=== PATIENT | female | born 2005 | race African-American/Black ===

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

== ENCOUNTER 2024-01-06 16:52 | Emergency (ER) | payer SELFPAY ==
[~2024-01-06] VITALS: Ht 160 cm; Wt 63.5 kg
[2024-01-06] VITALS (16 sets, daily range): BP systolic 62–116; BP diastolic 36–75
[2024-01-06] MEDS ORDERED: SODIUM CHLORIDE 0.9% 1,000 ML IV ONE ×2 (17:05→18:20)
[2024-01-06] MEDS ORDERED: MORPHINE SULFATE 4 MG/ML VIAL IV ONE ×2 (17:20→19:50)
[2024-01-06] MEDS ORDERED: ONDANSETRON HCl 4 MG/2 ML SDV IV ONE (17:20)
[2024-01-06] MEDS ORDERED: KETOROLAC TROMETHAMINE 30 MG/ML SDV IV ONE (17:20)
[2024-01-06 17:41] LABS: EOS% 7.2 % (0-8); HEMATOCRIT 24.8 % (37.0-47.0); HEMOGLOBIN 7.9 g/dl (12.0-16.0); IMMATURE GRANULOCYTES 0.6 % (0.0-5.0); LYMPH% 32.1 % (15-41); MEAN CELL VOLUME 94.3 fL CALC (80.0-100.0); MEAN CORPUSCULAR HGB CONC 31.9 g/dL CAL (32.0-36.0); MONO% 6.7 % (2-13); NEUT# 9.66 thou/uL (2.00-7.15); NEUT% 52.4 % (42-76); RED BLOOD COUNT 2.63 mill/uL (4.20-5.60); RED CELL DISTRI WIDTH 24.8 % (11.5-15.5)
[2024-01-06 17:54] LABS: BILIRUBIN, TOTAL 3.6 mg/dL (0.02-1.3); CREATININE 0.5 mg/dL (0.5-1.0); POTASSIUM 3.7 mmol/l (3.5-5.1); TOTAL PROTEIN 7.3 g/dL (6.3-8.2)
[2024-01-06 18:19] LABS: URINE BLOOD DIPSTICK Large (NEGATIVE); URINE GLUCOSE - DIPSTICK Negative (NEGATIVE); URINE KETONE Negative (NEGATIVE); URINE LEUK ESTERASE Trace (NEGATIVE); URINE NITRITE - DIPSTICK Negative (Negative); URINE PROTEIN - DIPSTICK >=300 mg/dL (NEG-TRACE); URINE SPECIFIC GRAVITY >=1.030
[2024-01-06 18:20] LABS: URINE COLOR Yellow
[2024-01-06 18:28] LABS: URINE SQUAMOUS EPITHELIAL CELL FEW EPI/hpf (0-FEW)
[2024-01-06] MEDS ORDERED: HYDROmorphone HCL 2 MG/AMP IV ONE (18:35)
[2024-01-06] MEDS ORDERED: cefTRIAXone SODIUM 2 GM in SODIUM CHLORIDE 0.9% 100 ML IV ONE (18:40)
[2024-01-06] MEDS ORDERED: IPRATROPIUM-Albuterol 0.5MG-2.5MG/3 ML NEB ONE (19:15)
[2024-01-06] MEDS ORDERED: DiphenhydrAMINE HCL 50 MG/ML SDV IV ONE (19:15)
[2024-01-06] MEDS ORDERED: methylPREDNISolone SODIUM SUCC 125 MG/2 ML SDV IV ONE (19:15)
[2024-01-06] MEDS ORDERED: EPINEPHrine HCL 1 MG/ML AMP IM ONE (19:15)
[2024-01-06] MEDS ORDERED: PROCHLORPERAZINE EDISYLATE 10 MG/2 ML SDV IV ONE (19:50)
[2024-01-06] MEDS ORDERED: HEPARIN SODIUM FLUSH (PORCINE) 100 UNIT/ML 5 ML SYR IV ONE (21:10)
[2024-01-06] MEDS ORDERED: SULFAMETHOXAZOLE W/TRIMETHOPRI 1 COMBO TAB PO ONE (21:10)
[2024-01-06] MEDS ORDERED: BACTRIM DS1 TAB PO (21:13)
== END 2024-01-06 21:36 | disposition home or self-care (01) | DRG 812 ==
LOC: ED 16:52
PROVIDERS: Family Medicine
DX: D57.00 Hb-SS disease with crisis, unspecified (principal); N39.0 Urinary tract infection, site not specified; J45.909 Unspecified asthma, uncomplicated; R06.02 Shortness of breath; L29.9 Pruritus, unspecified; T36.1X5A Adverse effect of cephalosporins and other beta-lactam antibiotics, initial encounter
CPT/HCPCS: Q9967

== ENCOUNTER 2024-01-12 15:51 | Emergency (ER) | payer SELFPAY ==
[~2024-01-12] VITALS: Ht 160 cm; Wt 58.9 kg
[2024-01-12] VITALS (21 sets, daily range): BP systolic 90–117; BP diastolic 46–90
[2024-01-12] MEDS ORDERED: SODIUM CHLORIDE 0.9% 1,000 ML IV ONE ×2 (15:55→17:45)
[2024-01-12] MEDS ORDERED: KETOROLAC TROMETHAMINE 30 MG/ML SDV IV ONE (15:55)
[2024-01-12] MEDS ORDERED: MORPHINE SULFATE 4 MG/ML VIAL IV ONE ×3 (17:15→20:55)
[2024-01-12 17:16] LABS: BASO% 0.8 % (0-3); HEMATOCRIT 24.9 % (37.0-47.0); HEMOGLOBIN 8.3 g/dl (12.0-16.0); IMMATURE GRANULOCYTES 1.8 % (0.0-5.0); LYMPH% 7.8 % (15-41); MEAN CORPUSCULAR HGB 29.5 pG CALC (26.0-32.0); MEAN CORPUSCULAR HGB CONC 33.3 g/dL CAL (32.0-36.0); MONO% 9.6 % (2-13); NEUT# 14.05 thou/uL (2.00-7.15); RED BLOOD COUNT 2.81 mill/uL (4.20-5.60); RED CELL DISTRI WIDTH 20.9 % (11.5-15.5)
[2024-01-12 17:32] LABS: MEAN CELL VOLUME 88.6 fL CALC (80.0-100.0)
[2024-01-12 17:33] LABS: ALBUMIN 4.3 g/dL (3.2-5.0); BILIRUBIN, TOTAL 4.4 mg/dL (0.02-1.3); CREATININE 0.6 mg/dL (0.5-1.0); TOTAL PROTEIN 7.7 g/dL (6.3-8.2)
[2024-01-12 17:34] LABS: POTASSIUM 4.6 mmol/l (3.5-5.1)
[2024-01-12] MEDS ORDERED: Levofloxacin 750 mg Premix 150 ML IV ONE (17:45)
[2024-01-12 18:27] LABS: URINE BLOOD DIPSTICK Negative (NEGATIVE); URINE COLOR Amber; URINE GLUCOSE - DIPSTICK 100 mg/dL (NEGATIVE); URINE KETONE Negative (NEGATIVE); URINE LEUK ESTERASE Negative (NEGATIVE); URINE NITRITE - DIPSTICK Negative (Negative); URINE PH 5.5 (4.5-8.0); URINE PROTEIN - DIPSTICK Negative (NEG-TRACE); URINE SPECIFIC GRAVITY 1.015; URINE UROBILINOGEN - DIPSTICK >=8.0 E.U./dL (0.2)
[2024-01-12] MEDS ORDERED: PAXLOVID 10 X 11 TAB PO (21:14)
== END 2024-01-12 21:55 | disposition home or self-care (01) | DRG 811 ==
LOC: ED 15:51
PROVIDERS: Family Medicine
DX: D57.01 Hb-SS disease with acute chest syndrome (principal); U07.1 COVID-19; J45.909 Unspecified asthma, uncomplicated
CPT/HCPCS: Q9967

== ENCOUNTER 2024-02-03 16:06 | Emergency (ER) | payer SELFPAY ==
[~2024-02-03] VITALS: Ht 160 cm; Wt 65.0 kg
[~2024-02-03 16:06] MED LIST changes: +PAXLOVID 10 X 11 TAB PO
[2024-02-03 16:14] VITALS: BP 111/71
[2024-02-03] MEDS ORDERED: KETOROLAC TROMETHAMINE 30 MG/ML SDV IV ONE ×2 (16:20→19:20)
[2024-02-03] MEDS ORDERED: SODIUM CHLORIDE 0.9% 1,000 ML IV ONE ×2 (16:20→19:20)
[2024-02-03] MEDS ORDERED: HYDROmorphone HCL 2 MG/AMP IV ONE ×3 (16:20→19:20)
[2024-02-03 17:09] LABS: BASO% 0.8 % (0-3); HEMOGLOBIN 9.6 g/dl (12.0-16.0); IMMATURE GRANULOCYTES 0.6 % (0.0-5.0); LYMPH% 15.9 % (15-41); MEAN CELL VOLUME 84.6 fL CALC (80.0-100.0); MEAN CORPUSCULAR HGB CONC 34.3 g/dL CAL (32.0-36.0); MONO% 5.1 % (2-13); NEUT# 11.6 thou/uL (2.00-7.15); NEUT% 74.6 % (42-76); RED BLOOD COUNT 3.31 mill/uL (4.20-5.60); RED CELL DISTRI WIDTH 20.9 % (11.5-15.5)
[2024-02-03 17:17] LABS: CREATININE 0.5 mg/dL (0.5-1.0); POTASSIUM 3.9 mmol/l (3.5-5.1)
[2024-02-03 17:21] LABS: HCG SERUM/URINE (NEG/POS) NEGATIVE (NEGATIVE)
[2024-02-03 17:50] LABS: URINE BLOOD DIPSTICK Negative (NEGATIVE); URINE GLUCOSE - DIPSTICK Negative (NEGATIVE); URINE KETONE Negative (NEGATIVE); URINE LEUK ESTERASE Negative (NEGATIVE); URINE NITRITE - DIPSTICK Negative (Negative); URINE PROTEIN - DIPSTICK Negative (NEG-TRACE)
[2024-02-03 17:53] LABS: URINE COLOR Dark yellow
[2024-02-03 18:00] VITALS: BP 111/64
[2024-02-03 18:30] VITALS: BP 113/52
[2024-02-03 20:09] VITALS: BP 109/70
[2024-02-03] MEDS ORDERED: DiphenhydrAMINE HCL 50 MG/ML SDV IV ONE (20:15)
[2024-02-03 20:30] VITALS: BP 110/78
[2024-02-03 21:44] VITALS: BP 110/78
== END 2024-02-03 21:48 | DRG 812 ==
LOC: ED 16:06
PROVIDERS: Family Medicine
DX: D57.01 Hb-SS disease with acute chest syndrome (principal); J45.909 Unspecified asthma, uncomplicated; Z79.891 Long term (current) use of opiate analgesic

== ENCOUNTER 2024-02-20 01:02 | Emergency (ER) | payer SELFPAY ==
[~2024-02-20] VITALS: Ht 160 cm; Wt 61.0 kg
[2024-02-20] VITALS (9 sets, daily range): BP systolic 104–138; BP diastolic 63–84
[2024-02-20] MEDS ORDERED: ACETAMINOPHEN 500 MG TAB PO ONE (01:30)
[2024-02-20] MEDS ORDERED: PROMETHAZINE HCL 25 MG/ML AMP IV ONE (01:30)
[2024-02-20] MEDS ORDERED: HYDROmorphone HCL 2 MG/AMP IV ONE (01:30)
[2024-02-20] MEDS ORDERED: SODIUM CHLORIDE 0.9% 1,000 ML IV ONE ×2 (01:30)
[2024-02-20] MEDS ORDERED: ASPIRIN 81 MG/TAB PO ONE (01:30)
[2024-02-20] MEDS ORDERED: KETOROLAC TROMETHAMINE 30 MG/ML SDV IV ONE (01:30)
[2024-02-20] MEDS ORDERED: DiphenhydrAMINE HCL 50 MG/ML SDV IV ONE (01:30)
[2024-02-20 02:12] LABS: BASO% 0.9 % (0-3); HEMATOCRIT 33.7 % (37.0-47.0); HEMOGLOBIN 10.9 g/dl (12.0-16.0); IMMATURE GRANULOCYTES 0.3 % (0.0-5.0); MEAN CELL VOLUME 86.9 fL CALC (80.0-100.0); MEAN CORPUSCULAR HGB 28.1 pG CALC (26.0-32.0); MEAN CORPUSCULAR HGB CONC 32.3 g/dL CAL (32.0-36.0); MONO% 6.4 % (2-13); NEUT# 9.2 thou/uL (2.00-7.15); NEUT% 62.4 % (42-76); RED BLOOD COUNT 3.88 mill/uL (4.20-5.60); RED CELL DISTRI WIDTH 17.1 % (11.5-15.5)
[2024-02-20 02:23] LABS: CREATININE 0.5 mg/dL (0.5-1.0)
[2024-02-20 02:24] LABS: BILIRUBIN, TOTAL 2.4 mg/dL (0.02-1.3); POTASSIUM 4.8 mmol/l (3.5-5.1)
[2024-02-20 02:29] LABS: ACT PARTIAL THROMBO TIME 23.5 SECONDS (20.0-32.5); INTERNATIONAL NORMALIZED RATIO 1.1 RATIO (0.7-1.3)
[2024-02-20 02:30] LABS: PROTHROMBIN TIME 10.7 SECONDS (9.0-12.5)
[2024-02-20] MEDS ORDERED: ASPIRIN 81 MG/TAB ONE (02:33)
[2024-02-20 03:47] LABS: URINE BILIRUBIN - DIPSTICK Negative (NEGATIVE); URINE BLOOD DIPSTICK Negative (NEGATIVE); URINE COLOR Yellow; URINE GLUCOSE - DIPSTICK Negative (NEGATIVE); URINE KETONE Negative (NEGATIVE); URINE LEUK ESTERASE Negative (NEGATIVE); URINE NITRITE - DIPSTICK Negative (Negative); URINE PROTEIN - DIPSTICK Negative (NEG-TRACE); URINE SPECIFIC GRAVITY 1.015; URINE UROBILINOGEN - DIPSTICK >=8.0 E.U./dL (0.2)
[2024-02-20] MEDS ORDERED: PROCHLORPERAZINE EDISYLATE 10 MG/2 ML SDV IV ONE (04:10)
[2024-02-20] MEDS ORDERED: oxyCODONE 5MG/ ACETAMINOPHEN 325MG TAB PO ONE (04:15)
[2024-02-20] MEDS ORDERED: MORPHINE SULFATE 4 MG/ML VIAL IV ONE (04:15)
[2024-02-20] MEDS ORDERED: SODIUM CHLORIDE 0.9% 10 ML SYR IV SCH (04:55)
[2024-02-20] MEDS ORDERED: HEPARIN SODIUM FLUSH (PORCINE) 100 UNIT/ML 5 ML SYR IV PRN (04:55)
[2024-02-20] MEDS ORDERED: SODIUM CHLORIDE 0.9% 10 ML SYR IV PRN (04:55)
== END 2024-02-20 05:17 | disposition home or self-care (01) | DRG 812 ==
LOC: ED 01:02
PROVIDERS: Family Medicine
DX: D57.00 Hb-SS disease with crisis, unspecified (principal)

== ENCOUNTER 2024-03-01 15:12 | Emergency (ER) | payer SELFPAY ==
[2024-03-01] VITALS (19 sets, daily range): BP systolic 100–130; BP diastolic 63–93
[~2024-03-01] VITALS: Ht 160 cm; Wt 61.0 kg
[2024-03-01] MEDS ORDERED: SODIUM CHLORIDE 0.9% 1,000 ML IV ONE ×2 (15:35→19:05)
[2024-03-01] MEDS ORDERED: ASPIRIN 81 MG/TAB PO ONE (15:35)
[2024-03-01] MEDS ORDERED: MORPHINE SULFATE 4 MG/ML VIAL IV ONE (15:40)
[2024-03-01] MEDS ORDERED: PROMETHAZINE HCL 25 MG/ML AMP IV ONE (15:40)
[2024-03-01 15:56] LABS: BASO% 0.6 % (0-3); EOS% 7.4 % (0-8); HEMATOCRIT 30.3 % (37.0-47.0); IMMATURE GRANULOCYTES 0.2 % (0.0-5.0); LYMPH% 29.6 % (15-41); MEAN CELL VOLUME 86.3 fL CALC (80.0-100.0); MEAN CORPUSCULAR HGB 28.5 pG CALC (26.0-32.0); MONO% 6.4 % (2-13); NEUT# 7.09 thou/uL (2.00-7.15); NEUT% 55.8 % (42-76); RED BLOOD COUNT 3.51 mill/uL (4.20-5.60); RED CELL DISTRI WIDTH 16.7 % (11.5-15.5)
[2024-03-01 16:13] LABS: ALBUMIN 4.6 g/dL (3.2-5.0); BILIRUBIN, TOTAL 2.2 mg/dL (0.02-1.3); CREATININE 0.5 mg/dL (0.5-1.0); TOTAL PROTEIN 8.6 g/dL (6.3-8.2)
[2024-03-01 16:22] LABS: POTASSIUM 3.7 mmol/l (3.5-5.1)
[2024-03-01] MEDS ORDERED: LACTATED RINGER'S 1,000 ML IV ONE (16:25)
[2024-03-01] MEDS ORDERED: HYDROmorphone HCL 2 MG/AMP IV ONE ×2 (17:50→19:55)
[2024-03-01 17:53] LABS: URINE BILIRUBIN - DIPSTICK Negative (NEGATIVE); URINE BLOOD DIPSTICK Negative (NEGATIVE); URINE GLUCOSE - DIPSTICK Negative (NEGATIVE); URINE KETONE Negative (NEGATIVE); URINE LEUK ESTERASE Negative (NEGATIVE); URINE NITRITE - DIPSTICK Negative (Negative); URINE PH 6.5 (4.5-8.0); URINE PROTEIN - DIPSTICK Negative (NEG-TRACE); URINE SPECIFIC GRAVITY 1.015; URINE UROBILINOGEN - DIPSTICK >=8.0 E.U./dL (0.2)
[2024-03-01 17:54] LABS: URINE COLOR Yellow
[2024-03-01] MEDS ORDERED: DiphenhydrAMINE HCL 50 MG/ML SDV IV ONE (18:25)
[2024-03-01] MEDS ORDERED: KETOROLAC TROMETHAMINE 30 MG/ML SDV IV ONE (18:30)
== END 2024-03-01 19:47 | DRG 812 ==
LOC: ED 15:12
PROVIDERS: Family Medicine
DX: D57.00 Hb-SS disease with crisis, unspecified (principal)

== ENCOUNTER 2024-03-19 15:16 | Emergency (ER) | payer SELFPAY ==
[~2024-03-19] VITALS: Ht 160 cm; Wt 65.7 kg
[2024-03-19] VITALS (14 sets, daily range): BP systolic 99–127; BP diastolic 63–82
[2024-03-19] MEDS ORDERED: SODIUM CHLORIDE 0.9% 1,000 ML IV ONE ×3 (15:20→16:30)
[2024-03-19] MEDS ORDERED: ONDANSETRON HCl 4 MG/2 ML SDV IV ONE (15:20)
[2024-03-19] MEDS ORDERED: HYDROmorphone HCL 2 MG/AMP IV ONE (15:20)
[2024-03-19 15:51] LABS: BASO% 1.2 % (0-3); EOS% 7.5 % (0-8); HEMATOCRIT 28.7 % (37.0-47.0); HEMOGLOBIN 9.5 g/dl (12.0-16.0); IMMATURE GRANULOCYTES 0.4 % (0.0-5.0); LYMPH% 21.9 % (15-41); MEAN CELL VOLUME 87.2 fL CALC (80.0-100.0); MEAN CORPUSCULAR HGB 28.9 pG CALC (26.0-32.0); MEAN CORPUSCULAR HGB CONC 33.1 g/dL CAL (32.0-36.0); MONO% 9.4 % (2-13); NEUT# 7.19 thou/uL (2.00-7.15); NEUT% 59.6 % (42-76); RED BLOOD COUNT 3.29 mill/uL (4.20-5.60); RED CELL DISTRI WIDTH 17.2 % (11.5-15.5)
[2024-03-19 16:09] LABS: ALBUMIN 4.7 g/dL (3.2-5.0); CREATININE 0.6 mg/dL (0.5-1.0); POTASSIUM 4.4 mmol/l (3.5-5.1); TOTAL PROTEIN 8.6 g/dL (6.3-8.2)
[2024-03-19 16:22] LABS: BILIRUBIN, TOTAL 3.7 mg/dL (0.02-1.3)
[2024-03-19] MEDS ORDERED: KETOROLAC TROMETHAMINE 30 MG/ML SDV IV ONE (16:30)
[2024-03-19] MEDS ORDERED: PROMETHAZINE HCL 25 MG/ML AMP IV ONE (16:40)
[2024-03-19 17:40] LABS: URINE BILIRUBIN - DIPSTICK Negative (NEGATIVE); URINE BLOOD DIPSTICK Negative (NEGATIVE); URINE GLUCOSE - DIPSTICK Negative (NEGATIVE); URINE KETONE Negative (NEGATIVE); URINE LEUK ESTERASE Negative (NEGATIVE); URINE NITRITE - DIPSTICK Negative (Negative); URINE PH 5.5 (4.5-8.0); URINE PROTEIN - DIPSTICK Negative (NEG-TRACE); URINE SPECIFIC GRAVITY 1.015
[2024-03-19 17:42] LABS: URINE COLOR Dark yellow
[2024-03-19] MEDS ORDERED: MORPHINE SULFATE 4 MG/ML VIAL IV ONE (17:50)
== END 2024-03-19 18:45 | disposition home or self-care (01) | DRG 812 ==
LOC: ED 15:16
PROVIDERS: Nurse Practitioner
DX: D57.00 Hb-SS disease with crisis, unspecified (principal); R82.5 Elevated urine levels of drugs, medicaments and biological substances

== ENCOUNTER 2024-03-29 00:25 | Emergency (ER) | payer SELFPAY ==
[2024-03-29] VITALS (26 sets, daily range): BP systolic 80–109; BP diastolic 47–64
[~2024-03-29] VITALS: Ht 160 cm; Wt 60.0 kg
[2024-03-29] MEDS ORDERED: HYDROmorphone HCL 2 MG/AMP IV ONE (00:45)
[2024-03-29] MEDS ORDERED: DiphenhydrAMINE HCL 50 MG/ML SDV IV ONE (00:45)
[2024-03-29] MEDS ORDERED: PROMETHAZINE HCL 25 MG/ML AMP IV ONE (00:45)
[2024-03-29] MEDS ORDERED: KETOROLAC TROMETHAMINE 30 MG/ML SDV IV ONE ×2 (00:50→02:35)
[2024-03-29] MEDS ORDERED: SODIUM CHLORIDE 0.9% 1,000 ML IV ONE ×3 (00:50)
[2024-03-29 01:14] LABS: BASO% 0.9 % (0-3); EOS% 9.7 % (0-8); HEMATOCRIT 27.4 % (37.0-47.0); IMMATURE GRANULOCYTES 0.8 % (0.0-5.0); LYMPH% 30.4 % (15-41); MEAN CELL VOLUME 88.4 fL CALC (80.0-100.0); MEAN CORPUSCULAR HGB CONC 32.8 g/dL CAL (32.0-36.0); MONO% 8.6 % (2-13); NEUT# 8.52 thou/uL (2.00-7.15); NEUT% 49.6 % (42-76); RED BLOOD COUNT 3.1 mill/uL (4.20-5.60); RED CELL DISTRI WIDTH 20.4 % (11.5-15.5)
[2024-03-29 01:28] LABS: ALBUMIN 4.5 g/dL (3.2-5.0); ALKALINE PHOSPHATASE 88 u/l (38-126); ANION GAP 10 (6-22 (CALC)); BILIRUBIN, TOTAL 2.3 mg/dL (0.02-1.3); BUN 11 mg/dL (8-21); BUN/CREATININE RATIO 21 (12-20 (CALC)); CARBON DIOXIDE 22 mmol/l (22-30); CHLORIDE 110 mmol/l (95-108); CREATININE 0.5 mg/dL (0.5-1.0); ESTIMATED GFR 138 ML/MIN (>=90 (CALC)); SGOT/AST 34 u/l (14-36); SODIUM 138 mmol/l (137-146); TOTAL PROTEIN 8.1 g/dL (6.3-8.2)
[2024-03-29 01:33] LABS: C-REACTIVE PROTEIN < 0.5 mg/dL (0-0.9)
[2024-03-29] MEDS ORDERED: MORPHINE SULFATE 4 MG/ML VIAL IV ONE (02:35)
[2024-03-29] MEDS ORDERED: PROCHLORPERAZINE EDISYLATE 10 MG/2 ML SDV IV ONE (02:35)
[2024-03-29 04:23] LABS: URINE BILIRUBIN - DIPSTICK Negative (NEGATIVE); URINE BLOOD DIPSTICK Negative (NEGATIVE); URINE GLUCOSE - DIPSTICK Negative (NEGATIVE); URINE KETONE Negative (NEGATIVE); URINE LEUK ESTERASE Negative (NEGATIVE); URINE NITRITE - DIPSTICK Negative (Negative); URINE PROTEIN - DIPSTICK Negative (NEG-TRACE); URINE SPECIFIC GRAVITY 1.015
[2024-03-29 04:33] LABS: URINE COLOR Yellow
[2024-03-29] MEDS ORDERED: oxyCODONE 5MG/ ACETAMINOPHEN 325MG TAB PO ONE (04:35)
[2024-03-29] MEDS ORDERED: HEPARIN SODIUM FLUSH (PORCINE) 100 UNIT/ML 5 ML SYR IV ONE (05:30)
== END 2024-03-29 06:04 | disposition home or self-care (01) | DRG 812 ==
LOC: ED 00:25
PROVIDERS: Family Medicine
DX: D57.00 Hb-SS disease with crisis, unspecified (principal)

== ENCOUNTER 2024-06-16 03:18 | Emergency (ER) | payer OTHER ==
[2024-06-16] VITALS (8 sets, daily range): BP systolic 108–114; BP diastolic 65–78
[~2024-06-16] VITALS: Ht 160 cm; Wt 63.0 kg
[~2024-06-16 03:18] MED LIST changes: +PROCHLORPERAZINE5 M1
[2024-06-16] MEDS ORDERED: SODIUM CHLORIDE 0.9% 1,000 ML IV ONE ×2 (03:40→05:15)
[2024-06-16] MEDS ORDERED: HYDROmorphone HCL 2 MG/AMP IV ONE ×2 (03:40→07:15)
[2024-06-16] MEDS ORDERED: ONDANSETRON HCl 4 MG/2 ML SDV IV ONE (03:45)
[2024-06-16] MEDS ORDERED: DiphenhydrAMINE HCL 50 MG/ML SDV IV ONE (04:05)
[2024-06-16 04:38] LABS: BASO% 0.9 % (0-3); EOS% 4.1 % (0-8); IMMATURE GRANULOCYTES 1.2 % (0.0-5.0); LYMPH% 22.6 % (15-41); MEAN CELL VOLUME 89.8 fL CALC (80.0-100.0); MEAN CORPUSCULAR HGB 29.5 pG CALC (26.0-32.0); MEAN CORPUSCULAR HGB CONC 32.8 g/dL CAL (32.0-36.0); NEUT# 12.26 thou/uL (2.00-7.15); NEUT% 61.2 % (42-76); RED BLOOD COUNT 3.05 mill/uL (4.20-5.60); RED CELL DISTRI WIDTH 19.4 % (11.5-15.5)
[2024-06-16 04:39] LABS: HEMATOCRIT 27.4 % (37.0-47.0)
[2024-06-16 04:51] LABS: ALBUMIN 4.7 g/dL (3.2-5.0); BILIRUBIN, TOTAL 2.9 mg/dL (0.02-1.3); CREATININE 0.6 mg/dL (0.5-1.0); POTASSIUM 4.5 mmol/l (3.5-5.1); TOTAL PROTEIN 8.4 g/dL (6.3-8.2)
== END 2024-06-16 07:18 | disposition short-term general hospital (02) ==
LOC: ED 03:18
PROVIDERS: Family Medicine
DX: D57.00 Hb-SS disease with crisis, unspecified (principal)
CPT/HCPCS: J1171; J1200; J2405

== ENCOUNTER 2024-07-13 21:32 | Emergency (ER) | payer OTHER ==
[~2024-07-13] VITALS: Ht 160 cm; Wt 63.0 kg
[2024-07-13] MEDS ORDERED: KETOROLAC TROMETHAMINE 15 MG/ML SDV IV ONE (22:05)
[2024-07-13] MEDS ORDERED: ONDANSETRON HCl 4 MG/2 ML SDV IV ONE (22:05)
[2024-07-13] MEDS ORDERED: DiphenhydrAMINE HCL 50 MG/ML SDV IV ONE (22:05)
[2024-07-13] MEDS ORDERED: HYDROmorphone HCL 2 MG/AMP IV ONE ×2 (22:05→23:05)
[2024-07-13 22:17] LABS: BASO% 1.1 % (0-3); EOS% 7.8 % (0-8); HEMATOCRIT 24.9 % (37.0-47.0); HEMOGLOBIN 8.2 g/dl (12.0-16.0); IMMATURE GRANULOCYTES 1.1 % (0.0-5.0); MEAN CELL VOLUME 89.6 fL CALC (80.0-100.0); MEAN CORPUSCULAR HGB 29.5 pG CALC (26.0-32.0); MEAN CORPUSCULAR HGB CONC 32.9 g/dL CAL (32.0-36.0); MONO% 6.4 % (2-13); NEUT# 10.72 thou/uL (2.00-7.15); NEUT% 53.6 % (42-76); RED BLOOD COUNT 2.78 mill/uL (4.20-5.60); RED CELL DISTRI WIDTH 19.5 % (11.5-15.5)
[2024-07-13 22:17] LABS: URINE BILIRUBIN - DIPSTICK Negative (NEGATIVE); URINE BLOOD DIPSTICK Negative (NEGATIVE); URINE GLUCOSE - DIPSTICK Negative (NEGATIVE); URINE KETONE Negative (NEGATIVE); URINE LEUK ESTERASE Negative (NEGATIVE); URINE NITRITE - DIPSTICK Negative (Negative); URINE PH 6.5 (4.5-8.0); URINE PROTEIN - DIPSTICK Negative (NEG-TRACE); URINE UROBILINOGEN - DIPSTICK 0.2 E.U./dL (0.2)
[2024-07-13 22:18] LABS: URINE COLOR Yellow
[2024-07-13 22:23] LABS: ALBUMIN 4.2 g/dL (3.2-5.0); BILIRUBIN, TOTAL 2.3 mg/dL (0.02-1.3); CREATININE 0.6 mg/dL (0.5-1.0); POTASSIUM 4.3 mmol/l (3.5-5.1); TOTAL PROTEIN 7.5 g/dL (6.3-8.2)
[2024-07-13 22:36] VITALS: BP 101/61
[2024-07-13 23:00] VITALS: BP 96/55
[2024-07-13 23:30] VITALS: BP 92/48
[2024-07-13 23:44] VITALS: BP 87/58
[2024-07-13 23:56] VITALS: BP 89/54
[2024-07-14] VITALS: BP 95/58
[2024-07-14 00:30] VITALS: BP 97/53
[2024-07-14 01:00] VITALS: BP 103/62
[2024-07-14 01:30] VITALS: BP 92/55
[2024-07-14] MEDS ORDERED: HYDROmorphone HCL 2 MG/AMP IV ONE (01:55)
[2024-07-14] MEDS ORDERED: methylPREDNISolone Sod Succ 40 MG/ML SDV IV ONE (02:05)
[2024-07-14] MEDS ORDERED: IPRATROPIUM-Albuterol 0.5MG-2.5MG/3 ML NEB ONE (02:05)
[2024-07-14 02:10] VITALS: BP 92/55
== END 2024-07-14 02:10 ==
LOC: ED 21:32
PROVIDERS: Emergency Medicine
DX: D57.00 Hb-SS disease with crisis, unspecified (principal); R11.0 Nausea; J45.909 Unspecified asthma, uncomplicated
CPT/HCPCS: J1171; J1200; J1885; J2405

== ENCOUNTER 2024-09-05 21:14 | Emergency (ER) | payer OTHER ==
[~2024-09-05] VITALS: Ht 160 cm; Wt 65.0 kg
[2024-09-05 21:25] VITALS: BP 101/59
[2024-09-05] MEDS ORDERED: SODIUM CHLORIDE 0.9% 1,000 ML IV ONE ×2 (21:35→23:15)
[2024-09-05] MEDS ORDERED: HYDROmorphone HCL 2 MG/AMP IV ONE ×3 (21:35→23:15)
[2024-09-05 22:04] LABS: BASO% 1.4 % (0-3); EOS% 8.5 % (0-8); HEMATOCRIT 24.4 % (37.0-47.0); HEMOGLOBIN 8.3 g/dl (12.0-16.0); IMMATURE GRANULOCYTES 0.3 % (0.0-5.0); LYMPH% 40.2 % (15-41); MEAN CELL VOLUME 87.8 fL CALC (80.0-100.0); MEAN CORPUSCULAR HGB 29.9 pG CALC (26.0-32.0); MONO% 6.8 % (2-13); NEUT# 7.69 thou/uL (2.00-7.15); NEUT% 42.8 % (42-76); RED BLOOD COUNT 2.78 mill/uL (4.20-5.60)
[2024-09-05 22:19] LABS: ALBUMIN 4.7 g/dL (3.2-5.0); BILIRUBIN, TOTAL 2.5 mg/dL (0.02-1.3); CREATININE 0.9 mg/dL (0.5-1.0); POTASSIUM 3.7 mmol/l (3.5-5.1); TOTAL PROTEIN 8.1 g/dL (6.3-8.2)
[2024-09-05] MEDS ORDERED: DiphenhydrAMINE HCL 50 MG/ML SDV IV ONE ×2 (22:25→23:15)
[2024-09-05 22:36] VITALS: BP 115/73
[2024-09-05 22:46] VITALS: BP 106/60
[2024-09-05 23:01] VITALS: BP 75/43
[2024-09-05 23:42] LABS: URINE BLOOD DIPSTICK Moderate (NEGATIVE); URINE COLOR Yellow; URINE GLUCOSE - DIPSTICK Negative (NEGATIVE); URINE KETONE Trace mg/dL (NEGATIVE); URINE LEUK ESTERASE Negative (NEGATIVE); URINE NITRITE - DIPSTICK Negative (Negative); URINE PH 5.5 (4.5-8.0); URINE PROTEIN - DIPSTICK Negative (NEG-TRACE); URINE SPECIFIC GRAVITY 1.015
[2024-09-05 23:48] LABS: URINE BACTERIA FEW hpf; URINE SQUAMOUS EPITHELIAL CELL MANY EPI/hpf (0-FEW); URINE WBC 0-2 WBC/hpf (0-5)
[2024-09-06 00:09] VITALS: BP 91/62
== END 2024-09-06 00:21 | disposition home or self-care (01) ==
LOC: ED 21:14
PROVIDERS: Family Medicine
DX: D57.00 Hb-SS disease with crisis, unspecified (principal); J45.909 Unspecified asthma, uncomplicated
CPT/HCPCS: J1171; J1200